=== PATIENT | male | born 1980 | race Two or more races ===

== ENCOUNTER 2018-12-02 20:42 | Emergency (ER) | payer SELFPAY ==
[~2018-12-02] VITALS: Ht 185.4 cm; Wt 99.2 kg
[2018-12-02] MEDS ORDERED: SODIUM CHLORIDE 0.9% 1,000ML IVBOLUS ONE (21:00)
[2018-12-02] MEDS ORDERED: SODIUM CHLORIDE FLUSH 10ML SYR IVF ONE (21:00)
--- NOTE | 2018-12-02 21:13 | NUR ---
Pt presents to ed c/o n/v/d since w/ poor po intake. Denies any dizziness/syncopal episodes. States "i feel really dry." Able to tolerate more po intake today. Iv initiated and bolus per sep. Blood to lab. Pt aware of need for ua. Call light within reach.
[2018-12-02 21:20] LABS: BASOPHILS % (AUTO) 0 % (0-1); EOSINOPHILS % (AUTO) 0 % (1-7); LYMPHOCYTES # (AUTO) 0.78 x10^3/uL (1-3.4); LYMPHOCYTES % (AUTO) 8 % (22-44); MD NO; MEAN PLATELET VOLUME 8.4 fL (7.4-10.4); MONOCYTES # (AUTO) 0.77 x10^3/uL (0.2-0.8); MONOCYTES % (AUTO) 8 % (2-9); NEUTROPHILS # (AUTO) 7.85 x10^3/uL (1.8-6.8); NEUTROPHILS % (AUTO) 84 % (42-75); PLATELET COUNT 282 x10^3/uL (130-400); RED BLOOD COUNT 6.35 x10^6/uL (4.38-5.82); RED CELL DISTRIBUTION WIDTH 13.7 % (9.4-14.8)
[2018-12-02] MEDS ORDERED: ONDANSETRON 2MG/ML, 2ML IVPush ONE (21:30)
[2018-12-02 21:32] LABS: ALANINE AMINOTRANSFERASE 43 U/L (12-78); ALBUMIN 4.1 g/dL (3.4-5.0); ANION GAP 13 mmol/L (5-15); CALCIUM 8.4 mg/dL (8.5-10.1); CHLORIDE 102 mmol/L (98-107); CREATININE 1.51 mg/dL (0.7-1.3)
[2018-12-02 21:34] LABS: ALKALINE PHOSPHATASE 87 U/L (45-117); BILIRUBIN,TOTAL 0.3 mg/dL (0.2-1.0); TOTAL PROTEIN 8.9 g/dL (6.4-8.2)
--- NOTE | 2018-12-02 21:34 | NUR ---
Pt informed of need for stool sample. States unable to provide. Awaiting ua and stool sample.
[2018-12-02] MEDS ORDERED: ONDANSETRON 2MG/ML, 2ML ONE (21:57)
--- NOTE | 2018-12-02 22:00 | NUR ---
In rr attempting ua.
[2018-12-02 22:01] VITALS: BP 128/70
--- NOTE | 2018-12-02 22:17 | NUR ---
Ua sent to lab. No immediate needs from pt. Call light within reach. Still not able to provide stool sample.
[2018-12-02 22:27] LABS: MICROSCOPIC INDICATED
[2018-12-02 22:36] LABS: CULTURE INDICATED? NO
== END 2018-12-02 23:06 | disposition home or self-care (01) ==
LOC: ED 22:12
DX: A09 Infectious gastroenteritis and colitis, unspecified (principal)
CPT/HCPCS: 36415; 80053; 81001; 83690; 85025; 96361; 96374; 99283; J2405; J7030